=== PATIENT | female | born 1980 | race Two or more races ===

== ENCOUNTER 2021-01-16 09:34 | Outpatient (CLI) | payer OTHER | END 2021-01-16 09:48 | disposition home or self-care (01) | LOC: RX STUDY 09:34 | PROVIDERS: ATTEND Obstetrics & Gynecology Reproductive Endocrinology | DX: N70.11 Chronic salpingitis (principal) ==

== ENCOUNTER 2021-03-23 09:58 | Outpatient (CLI) | payer OTHER | END 2021-03-23 10:11 | disposition home or self-care (01) | LOC: RX STUDY 09:58 | PROVIDERS: ATTEND Obstetrics & Gynecology Reproductive Endocrinology | DX: N70.11 Chronic salpingitis (principal) ==